=== PATIENT | female | born 1945 | race Caucasian/White ===

== ENCOUNTER → 2018-12-26 | Outpatient (REF) | payer MEDICARE ==
[~2018-12-26] MED LIST: ACTONEL35 MG OR; ACTONEL35 MG PO; ADVAIR DISK1 IN; ADVAIR DISK1 INH; ALENDRONATE70 MG PO; ALLERGY RELIEF25 MG PO; ALPRAZOLAM0.25 MG PO; ALPRAZOLAM0.5 MG PO; AMLODIPINE5 MG PO; ASPIRIN LOW DOS81 M2 PO; ASPIRIN81 MG PO; AUGMENTIN500TAB PO; CALCIUM 600+D PO; CALCIUM/D250 MG PO; CALCIUM600 MG PO; CARAFATE PO; CARAFATE1 GM PO; CELEBREX200 MG PO; CETIRIZ/PSE1 TAB PO; CIPROFLOXACN500 MG PO; CLONIDINE HCL0.2 MG PO; CLONIDINE0.1 MG PO; CLONIDINE0.2 MG PO; DEPO-MEDROL40 MG/ML IJ; DICLOFENAC SODI75 MG PO; DOXEPIN HCL25 MG PO; FIORINA1 PO; FISH OIL1000 MG PO; FLAXSEED OIL1200 MG PO; FLONASE0.05 %; FLUARIX QUADRIV1 IN1 IM; FLUARIX QUADRIV1 INJ IM; FLULAVAL IM; FLUZONE SPLT1 M1 IM; FOSAMAX70 MG PO; HYDROCHLOROT25 MG PO; HYDROCO/APAP1 T10 PO; KEFLEX500 MG PO; LOPRESSOR50 M1 PO; LOPRESSOR50 MG OR; LORTAB 5-325 MG1 TAB PO; LORTAB 5/3255 MG PO; LOTRISONE EX; LOTRISONE TOP; LOVASTATIN20 MG PO; MACROBID100 MG PO; MECLIZINE25 MG PO; MEDDOSEPAK PO; MEDROL DOSEPAK4 MG PO; MELOXICAM7.5 MG PO; METOPROL TAR100 MG PO; METOPROL TAR50 MG PO; MEVACOR20 MG PO; MOBIC7.5 M1 PO; NASAL SPRAY 120.05 %; OMEPRAZOLE20 MG PO; PERCOCET 5/321 COMBO PO; PREDNISONE20 MG PO; PRILOSEC40 MG PO; PROMETHAZINE HC25 MG PO; PROTONIX40 M2 PO; PROTONIX40 MG PO; QUETIAPINE FUMA25 MG PO; TEMAZEPAM15 MG PO; TRAMADOL HCL50 MG PO; VENTOLIN HFA IN; VITAMIN D32000 UNIT PO; ZPAK PO; ZYRTEC-D AL1 OR; ZYRTEC10 M3 OR; ZYRTEC10 MG PO
[2018-12-26 08:37] LABS: HEMATOCRIT 42.2 % (37.0-47.0); HEMOGLOBIN 13.7 g/dl (12.0-16.0); IMMATURE GRANULOCYTES 0.7 % (0.0-5.0); MEAN CORPUSCULAR HGB 28.9 pG CALC (26.0-32.0); MEAN CORPUSCULAR HGB CONC 32.5 g/L CALC (32.0-36.0); NEUT# 2.49 thou/uL (2.00-7.15); RED BLOOD COUNT 4.74 mill/uL (4.20-5.60); RED CELL DISTRI WIDTH 13.1 % (11.5-15.5)
[2018-12-26 09:03] LABS: ANION GAP 12 (6-22 (CALC)); BUN 14 mg/dL (8-23); BUN/CREATININE RATIO 16 (12-20 (CALC)); CARBON DIOXIDE 32 mmol/l (22-30); CHLORIDE 102 mmol/l (95-108); CREATININE 0.9 mg/dL (0.5-1.0); GFR > 60 ML/MIN (>=60 (CALC)); GFR FOR AFR.AMER. > 60 ML/MIN (>=60 (CALC)); POTASSIUM 4.6 mmol/l (3.5-5.1); SODIUM 142 mmol/l (137-146)
[2018-12-26 09:04] LABS: ALBUMIN 4.3 g/dL (3.2-5.0); ALKALINE PHOSPHATASE 64 u/l (38-126); BILIRUBIN, TOTAL 0.8 mg/dL (0.0-1.4); CALCULATED LDLCHOLESTEROL 65 mg/dL (62-129 (CALC)); CHOLESTEROL HDL RATIO 2.4 (<4.4 (CALC)); HDL CHOLESTEROL 58 mg/dL (>=40); SGOT/AST 32 u/l (9-36); TOTAL CHOLESTEROL 142 mg/dl (0-199); TOTAL PROTEIN 7.2 g/dL (6.3-8.2); TOTAL TRIGLYCERIDES 96 mg/dl (30-149); VLDL CHOLESTROL 19 mg/dl (0-48 (CALC))
== END | disposition home or self-care (01) ==
LOC: LAB 07:31
PROVIDERS: ATTEND Internal Medicine Geriatric Medicine
DX: I10 Essential (primary) hypertension (principal); E78.2 Mixed hyperlipidemia

== ENCOUNTER 2019-10-26 | Emergency (ER) | payer MEDICARE ==
[2019-10-26 10:44] LABS: URINE BILIRUBIN - DIPSTICK NEGATIVE (NEGATIVE); URINE BLOOD DIPSTICK SMALL (NEGATIVE); URINE COLOR YELLOW; URINE GLUCOSE - DIPSTICK NEGATIVE (NEGATIVE); URINE KETONE NEGATIVE (NEGATIVE); URINE LEUK ESTERASE NEGATIVE (NEGATIVE); URINE NITRITE - DIPSTICK NEGATIVE (Negative); URINE PROTEIN - DIPSTICK NEGATIVE (NEG-TRACE); URINE UROBILINOGEN - DIPSTICK 0.2 E.U./dL (0.2)
[2019-10-26 10:48] LABS: URINE RBC 0-2 RBC/hpf (0-5); URINE WBC 0-2 WBC/hpf (0-5)
[2019-10-26 10:55] LABS: COCAINE NEGATIVE (NEGATIVE); METHADONE NEGATIVE (NEGATIVE); TETRAHYDROCANNABIONOL NEGATIVE (NEGATIVE)
[2019-10-26 10:56] LABS: BARBITURATES NEGATIVE (NEGATIVE); OXCYCODONE NEGATIVE (NEGATIVE); TRICYLIC ANTIDEPRESSANTS NEGATIVE (NEGATIVE)
[2019-10-26 11:23] LABS: HEMATOCRIT 42.8 % (37.0-47.0); HEMOGLOBIN 13.8 g/dl (12.0-16.0); IMMATURE GRANULOCYTES 0.2 % (0.0-5.0); MEAN CELL VOLUME 87.5 fL CALC (80.0-100.0); MEAN CORPUSCULAR HGB 28.2 pG CALC (26.0-32.0); MEAN CORPUSCULAR HGB CONC 32.2 g/L CALC (32.0-36.0); NEUT# 2.53 thou/uL (2.00-7.15); RED BLOOD COUNT 4.89 mill/uL (4.20-5.60); RED CELL DISTRI WIDTH 13.1 % (11.5-15.5)
[2019-10-26 12:13] LABS: ALBUMIN 4.2 g/dL (3.2-5.0); ALKALINE PHOSPHATASE 59 u/l (38-126); ANION GAP 12 (6-22 (CALC)); BILIRUBIN, TOTAL 0.8 mg/dL (0.0-1.4); BUN 17 mg/dL (8-23); BUN/CREATININE RATIO 24 (12-20 (CALC)); CARBON DIOXIDE 29 mmol/l (22-30); CHLORIDE 103 mmol/l (95-108); CREATININE 0.7 mg/dL (0.5-1.0); ETHYL ALCOHOL 0 mg/dl (0-30); GFR > 60 ML/MIN (>=60 (CALC)); GFR FOR AFR.AMER. > 60 ML/MIN (>=60 (CALC)); SGOT/AST 41 u/l (9-36); SODIUM 140 mmol/l (137-146); TOTAL PROTEIN 7.5 g/dL (6.3-8.2)
[2019-11-07] MEDS ORDERED: FOSAMAX PLUS PO (14:21)
[2019-11-07] MEDS ORDERED: AMLODIPINE BESYL5 MG PO (14:22)
[2019-11-07] MEDS ORDERED: ASPIRIN ADULT L81 MG PO (14:23)
[2019-11-07] MEDS ORDERED: CALCI PO (14:24)
[2019-11-07] MEDS ORDERED: ALTOPREV20 MG PO (14:25)
[2019-11-07] MEDS ORDERED: FLAX SEED1000 MG PO (14:25)
[2019-11-07] MEDS ORDERED: METOPROL TAR100 MG PO (14:26)
== END 2019-10-26 15:59 | disposition other institution (70) ==
PROVIDERS: Family Medicine
DX: F22 Delusional disorders (principal); I10 Essential (primary) hypertension; F03.90 Unspecified dementia, unspecified severity, without behavioral disturbance, psychotic disturbance, mood disturbance, and anxiety; R44.3 Hallucinations, unspecified

== ENCOUNTER 2020-01-12 | Emergency (ER) | payer MEDICARE ==
[~2020-01-12] MED LIST changes: +ALTOPREV20 MG PO; +AMLODIPINE BESYL5 MG PO; +ASPIRIN ADULT L81 MG PO; +CALCI PO; +FLAX SEED1000 MG PO; +FOSAMAX PLUS PO
== END 2020-01-12 19:52 | disposition home or self-care (01) ==
DX: S61.217A Laceration without foreign body of left little finger without damage to nail, initial encounter (principal); I10 Essential (primary) hypertension; W23.0XXA Caught, crushed, jammed, or pinched between moving objects, initial encounter

== ENCOUNTER 2021-01-03 13:11 | Emergency (ER) | payer MEDICARE ==
[~2021-01-03] VITALS: Ht 162.6 cm; Wt 68.2 kg
[2021-01-03] MEDS ORDERED: DONEPEZIL10 MG PO (13:57)
[2021-01-03] MEDS ORDERED: HALOPERIDOL0.5 MG PO (13:58)
[2021-01-03] MEDS ORDERED: OYSCO PO (13:58)
[2021-01-03] MEDS ORDERED: [UNRECOGNIZED DRUG - OTHER] PO (13:58)
[2021-01-03 14:01] LABS: HEMATOCRIT 41.9 % (37.0-47.0); HEMOGLOBIN 13.5 g/dl (12.0-16.0); IMMATURE GRANULOCYTES 0.5 % (0.0-5.0); MEAN CELL VOLUME 89.1 fL CALC (80.0-100.0); MEAN CORPUSCULAR HGB 28.7 pG CALC (26.0-32.0); MEAN CORPUSCULAR HGB CONC 32.2 g/dL CAL (32.0-36.0); NEUT# 2.5 thou/uL (2.00-7.15); RED BLOOD COUNT 4.7 mill/uL (4.20-5.60); RED CELL DISTRI WIDTH 12.8 % (11.5-15.5)
[2021-01-03] MEDS ORDERED: VALIUM2 MG PO (14:02)
[2021-01-03] MEDS ORDERED: QUETIAPINE FUMA50 MG PO (14:02)
[2021-01-03 14:17] LABS: ALBUMIN 4.1 g/dL (3.2-5.0); ALKALINE PHOSPHATASE 52 u/l (38-126); ANION GAP 12 (6-22 (CALC)); BILIRUBIN, TOTAL 0.7 mg/dL (0.0-1.4); BUN 17 mg/dL (8-23); BUN/CREATININE RATIO 18 (12-20 (CALC)); CARBON DIOXIDE 29 mmol/l (22-30); CHLORIDE 100 mmol/l (95-108); CREATININE 0.9 mg/dL (0.5-1.0); GFR > 60 ML/MIN (>=60 (CALC)); GFR FOR AFR.AMER. > 60 ML/MIN (>=60 (CALC)); LIPASE 174 u/l (23-300); MAGNESIUM 2.1 mg/dL (1.6-2.3); POTASSIUM 4.5 mmol/l (3.5-5.1); SGOT/AST 29 u/l (9-36); SODIUM 136 mmol/l (137-146); TOTAL PROTEIN 7.1 g/dL (6.3-8.2)
[2021-01-03 14:20] LABS: ACT PARTIAL THROMBO TIME 22.9 SECONDS (20.0-32.5); PROTHROMBIN TIME 10.6 SECONDS (9.0-12.5)
[2021-01-03 15:03] LABS: URINE BILIRUBIN - DIPSTICK NEGATIVE (NEGATIVE); URINE BLOOD DIPSTICK TRACE-INTACT (NEGATIVE); URINE COLOR YELLOW; URINE GLUCOSE - DIPSTICK NEGATIVE (NEGATIVE); URINE KETONE NEGATIVE (NEGATIVE); URINE LEUK ESTERASE NEGATIVE (NEGATIVE); URINE NITRITE - DIPSTICK NEGATIVE (Negative); URINE PROTEIN - DIPSTICK NEGATIVE (NEG-TRACE); URINE UROBILINOGEN - DIPSTICK 0.2 E.U./dL (0.2)
[2021-01-03 16:36] VITALS: BP 160/77
== END 2021-01-03 16:25 ==
LOC: ED 13:11
DX: S00.93XA Contusion of unspecified part of head, initial encounter (principal); S30.0XXA Contusion of lower back and pelvis, initial encounter; R42 Dizziness and giddiness; I10 Essential (primary) hypertension; E78.5 Hyperlipidemia, unspecified; F03.90 Unspecified dementia, unspecified severity, without behavioral disturbance, psychotic disturbance, mood disturbance, and anxiety; W18.39XA Other fall on same level, initial encounter; Y92.099 Unspecified place in other non-institutional residence as the place of occurrence of the external cause

== ENCOUNTER 2021-05-19 17:02 | Emergency (ER) | payer MEDICARE ==
[~2021-05-19] VITALS: Ht 162.6 cm; Wt 75.0 kg
[~2021-05-19 17:02] MED LIST changes: +DONEPEZIL10 MG PO; +HALOPERIDOL0.5 MG PO; +OYSCO PO; +QUETIAPINE FUMA50 MG PO; +VALIUM2 MG PO; +[UNRECOGNIZED DRUG - OTHER] PO
[2021-05-19 18:24] LABS: HEMATOCRIT 41.1 % (37.0-47.0); HEMOGLOBIN 13.3 g/dl (12.0-16.0); IMMATURE GRANULOCYTES 0.2 % (0.0-5.0); MEAN CELL VOLUME 91.1 fL CALC (80.0-100.0); MEAN CORPUSCULAR HGB 29.5 pG CALC (26.0-32.0); MEAN CORPUSCULAR HGB CONC 32.4 g/dL CAL (32.0-36.0); NEUT# 2.57 thou/uL (2.00-7.15); RED BLOOD COUNT 4.51 mill/uL (4.20-5.60); RED CELL DISTRI WIDTH 12.5 % (11.5-15.5)
[2021-05-19 18:31] LABS: ALBUMIN 3.8 g/dL (3.2-5.0); ALKALINE PHOSPHATASE 59 u/l (38-126); AMYLASE 83 u/l (30-110); ANION GAP 12 (6-22 (CALC)); BILIRUBIN, TOTAL 0.5 mg/dL (0.0-1.4); BUN 30 mg/dL (8-23); BUN/CREATININE RATIO 25 (12-20 (CALC)); CARBON DIOXIDE 28 mmol/l (22-30); CHLORIDE 101 mmol/l (95-108); CREATININE 1.2 mg/dL (0.5-1.0); ETHYL ALCOHOL 0 mg/dl (0-30); GFR 44 ML/MIN (>=60 (CALC)); GFR FOR AFR.AMER. 53 ML/MIN (>=60 (CALC)); LIPASE 180 u/l (23-300); POTASSIUM 4.5 mmol/l (3.5-5.1); SGOT/AST 31 u/l (9-36); SODIUM 137 mmol/l (137-146); TOTAL PROTEIN 6.9 g/dL (6.3-8.2)
[2021-05-19 18:32] LABS: ACT PARTIAL THROMBO TIME 23.9 SECONDS (20.0-32.5); PROTHROMBIN TIME 10.4 SECONDS (9.0-12.5)
[2021-05-19 18:59] LABS: URINE BILIRUBIN - DIPSTICK NEGATIVE (NEGATIVE); URINE BLOOD DIPSTICK SMALL (NEGATIVE); URINE COLOR YELLOW; URINE GLUCOSE - DIPSTICK NEGATIVE (NEGATIVE); URINE KETONE NEGATIVE (NEGATIVE); URINE LEUK ESTERASE NEGATIVE (NEGATIVE); URINE PROTEIN - DIPSTICK NEGATIVE (NEG-TRACE); URINE SPECIFIC GRAVITY <=1.005; URINE UROBILINOGEN - DIPSTICK 0.2 E.U./dL (0.2)
[2021-05-19 19:00] LABS: URINE NITRITE - DIPSTICK NEGATIVE (Negative)
[2021-05-19 19:05] LABS: URINE RBC 0-2 RBC/hpf (0-5); URINE SQUAMOUS EPITHELIAL CELL RARE EPI/hpf (0-FEW)
[2021-05-19 20:33] VITALS: BP 116/57
== END 2021-05-19 20:50 ==
LOC: ED 17:02
DX: E86.0 Dehydration (principal); M79.604 Pain in right leg; I10 Essential (primary) hypertension; E78.5 Hyperlipidemia, unspecified; F03.90 Unspecified dementia, unspecified severity, without behavioral disturbance, psychotic disturbance, mood disturbance, and anxiety